=== PATIENT | female | born 1980 | race Caucasian/White ===

== ENCOUNTER 2018-09-13 16:36 | Emergency (ER) | payer BC ==
--- NOTE | 2018-09-13 16:59 | ER Document Report ---
ED Medical Screen (RME) - General Chief Complaint: Abdominal Pain Stated Complaint: ABNOMINAL PAIN Time Seen by Provider: 09/13/18 16:56 Mode of Arrival: Wheelchair Information source: Patient, Relative Notes: 37-year-old female with no reported past medical history presents with complaint of sudden onset of right lower quadrant pain that occurred 2 hours prior to arrival. Patient has had associated nausea, vomiting. Last menstrual period was 2 weeks ago. Denies any chance of . Denies prior similar symptoms. Last bowel movement was 3 days ago. TRAVEL OUTSIDE OF THE [place] IN LAST 30 DAYS: Yes - HPI Onset: Just prior to arrival Onset/Duration: Sudden Quality of pain: Stabbing Severity: Severe Associated Symptoms: Abdominal pain, Nausea, Vomiting Exacerbated by: Denies Relieved by: Denies Similar symptoms previously: No Recently seen / treated by doctor: No - Related Data Smoking: Non-smoker Frequency of alcohol use: None Drug Abuse: None Allergies/Adverse Reactions: oxycodone HCl [From Percocet] Allergy (Severe, Verified 09/13/18 16:48) Vomiting Past Medical History - Social History Chew tobacco use (# tins/day): No Frequency of alcohol use: None Drug Abuse: None Neurological Medical History: Denies: Hx Seizures Renal/ Medical History: Denies: Hx Peritoneal Dialysis Past Surgical History: Denies: Hx Hysterectomy, Hx Pacemaker Physical Exam - Vital signs Vitals: Temp Pulse Resp BP Pulse Ox 97.7 F 76 18 128/91 H 100 09/13/18 16:44 09/13/18 16:44 09/13/18 16:44 09/13/18 16:44 09/13/18 16:44 Course - Vital Signs Vital signs: Temp Pulse Resp BP Pulse Ox 97.7 F 76 18 128/91 H 100 09/13/18 16:44 09/13/18 16:44 09/13/18 16:44 09/13/18 16:44 09/13/18 16:44
[2018-09-13] MEDS ORDERED: MORPHINE SULFATE 10 MG/ML INJ IV ONE (17:09)
[2018-09-13] MEDS ORDERED: ONDANSETRON HCL INJ/PF 4 MG/2 ML SDV IV ONE (17:09)
[2018-09-13] MEDS ORDERED: HYDROMORPHONE HCL INJ/PF 2 MG/ML AMPULE IM ONE (17:11)
[2018-09-13] MEDS ORDERED: ONDANSETRON 4 MG TAB.RAPDIS PO ONE (17:11)
[2018-09-13 17:34] LABS: ABSOLUTE EOSINOPHILS # (AUTO) 0.1 10^3/uL (0.0-0.6); ABSOLUTE LYMPHOCYTES (AUTO) 1.3 10^3/uL (0.5-4.7); ABSOLUTE MONOCYTES (AUTO) 0.7 10^3/uL (0.1-1.4); ABSOLUTE NEUT (AUTO) 7.8 10^3/uL (1.7-8.2); BASOPHILS % (AUTO) 0.2 % (0-2); EOSINOPHILS % (AUTO) 1.4 % (0-6); HEMATOCRIT 41.3 % (36.0-47.0); HEMOGLOBIN 14.1 g/dL (12.0-15.5); LYMPHOCYTES % (AUTO) 12.6 % (13-45); MEAN CORPUSCULAR HEMOGLOBIN 30.6 pg (27.0-33.4); MEAN CORPUSCULAR HGB CONC 34.2 g/dL (32.0-36.0); MEAN CORPUSCULAR VOLUME 90 fl (80-97); MONOCYTES % (AUTO) 7.3 % (3-13); PLATELET COUNT 285 10^3/uL (150-450); RED BLOOD COUNT 4.61 10^6/uL (3.72-5.28); RED CELL DISTRIBUTION WIDTH 12.8 % (11.5-14.0); SEGMENTED NEUTROPHILS % (AUTO) 78.5 % (42-78); TOTAL CELLS COUNTED % (AUTO) 100 %
[2018-09-13 17:45] LABS: APPEARANCE,URINE CLOUDY; BILIRUBIN,URINE NEGATIVE (NEGATIVE); COLOR,URINE YELLOW; GLUCOSE, URINE NEGATIVE (NEGATIVE); KETONES,URINE 20 mg/dL (NEGATIVE); LEUKOCYTE ESTERASE,URINE MODERATE (NEGATIVE); NITRITE,URINE NEGATIVE (NEGATIVE); PROTEIN,URINE 30 mg/dL (NEGATIVE); URINE SPECIFIC GRAVITY 1.027; UROBILINOGEN,URINE NEGATIVE mg/dL (<2.0)
[2018-09-13 17:53] LABS: ALANINE AMINOTRANSFERASE 22 U/L (9-52); ALKALINE PHOSPHATASE 55 U/L (38-126); ANION GAP 14 (5-19); ASPARTATE AMINO TRANSFERASE 25 U/L (14-36); BILIRUBIN,DIRECT 0.3 mg/dL (0.0-0.4); BILIRUBIN,TOTAL 0.6 mg/dL (0.2-1.3); BLOOD UREA NITROGEN 26 mg/dL (7-20); CALCIUM 9.9 mg/dL (8.4-10.2); CARBON DIOXIDE 27 mmol/L (22-30); CHLORIDE 101 mmol/L (98-107); GLUCOSE 92 mg/dL (75-110); LIPASE 124.4 U/L (23-300); POTASSIUM 4.4 mmol/L (3.6-5.0); SODIUM 142.4 mmol/L (137-145); TOTAL PROTEIN 8.3 g/dL (6.3-8.2)
--- NOTE | 2018-09-13 19:05 | RADIOLOGY REPORT (SQ) ---
EXAM DESCRIPTION: U/S NON OB PEL TV W/DOPPLER COMPLETED DATE/TIME: 09/13/2018 6:11 pm REASON FOR STUDY: Sudden onset of right lower quadrant pain LMP 09/01/2018 COMPARISON: None. TECHNIQUE: Dynamic and static grayscale images acquired of the pelvis via transvaginal approach and recorded on PACS. Additional selected color Doppler and spectral images recorded. LIMITATIONS: None. FINDINGS: UTERUS: Contour normal. No mass. ENDOMETRIAL STRIPE: Thickened. CERVIX: There is fluid in the endocervical canal. No nabothian cysts. RIGHT OVARY AND DOPPLER: Normal size. No worrisome masses. Normal arterial vascular flow without evid ence for torsion. There is irregular complex cyst measuring 1.7 x 1.5 x 1.6 cm. LEFT OVARY AND DOPPLER: Normal size. No worrisome masses. Normal arterial vascular flow without evide nce for torsion. FREE FLUID: No free fluid is seen. OTHER: No other significant finding. MEASUREMENTS: UTERUS: 8.7 x 4.1 x 5.1 cm. ENDOMETRIAL STRIPE: 16 mm. RIGHT OVARY: 3.6 x 2.3 x 2.6 cm. LEFT OVARY: 3.4 x 1.3 x 2.3 cm. IMPRESSION: 1. Slightly thickened endometrium. 2. Irregular right ovarian cyst possibly representing a ruptured follicle. TECHNICAL DOCUMENTATION: JOB ID: [id number]- All Rights Reserved Rev-02/25 Reading location - IP/workstation name: [email or web address]
[2018-09-13] MEDS ORDERED: NORMAL SALINE 1000 ML 1,000 ML IV ONE (20:06)
--- NOTE | 2018-09-13 20:42 | ER Document Report ---
ED GI/ - General Chief Complaint: Abdominal Pain Stated Complaint: ABNOMINAL PAIN Time Seen by Provider: 09/13/18 16:56 Mode of Arrival: Wheelchair Notes: Patient is a 37-year-old female presenting to the emergency department complaining of sudden onset of right lower pelvic pain this morning. Patient states pain was associated with nausea and vomiting. Patient denies any dysuria , vaginal discharge, fever, chest pain, shortness of breath, URI symptoms. Pt. stated LMP was 2 weeks ago. Past medical history: Depression, ADHD Medications: Wellbutrin, Adderall Allergies: None Surgical history: None TRAVEL OUTSIDE OF THE [place] IN LAST 30 DAYS: Yes - Related Data Allergies/Adverse Reactions: oxycodone HCl [From Percocet] Allergy (Severe, Verified 09/13/18 16:48) Vomiting Past Medical History - General Information source: Patient, Relative - Social History Smoking Status: Never Smoker Chew tobacco use (# tins/day): No Frequency of alcohol use: None Drug Abuse: None Lives with: Family Family History: Reviewed & Not Pertinent Patient has suicidal ideation: No Patient has homicidal ideation: No Neurological Medical History: Denies: Hx Seizures Renal/ Medical History: Denies: Hx Peritoneal Dialysis Past Surgical History: Denies: Hx Hysterectomy, Hx Pacemaker Review of Systems - Review of Systems Constitutional: denies: Chills, Fever EENT: No symptoms reported Cardiovascular: No symptoms reported Respiratory: No symptoms reported Gastrointestinal: See HPI Genitourinary: See HPI Female Genitourinary: See HPI Musculoskeletal: denies: Back pain Skin: No symptoms reported Hematologic/Lymphatic: No symptoms reported Neurological/Psychological: No symptoms reported Physical Exam - Vital signs Vitals: Temp Pulse Resp BP Pulse Ox 97.7 F 76 18 128/91 H 100 09/13/18 16:44 09/13/18 16:44 09/13/18 16:44 09/13/18 16:44 09/13/18 16:44 - Notes Notes: GENERAL: Alert, interacts well. No acute distress. HEAD: Normocephalic, atraumatic. EYES: Pupils equal, round, and reactive to light. Extraocular movements intact. ENT: Oral mucosa moist, tongue midline. NECK: Full range of motion. Supple. Trachea midline. LUNGS: Clear to auscultation bilaterally, no wheezes, rales, or rhonchi. No respiratory distress. HEART: Regular rate and rhythm. No murmur ABDOMEN: Soft, non-tender. Non-distended. Bowel sounds present in all 4 quadrants. No McBurney's point tenderness, no Rodriguez sign. Slight right lower pelvic pain upon deep palpation, patient states pain has much improved since arrival to the emergency room. EXTREMITIES: Moves all 4 extremities spontaneously. No edema, normal radial and dorsalis pedis pulses bilaterally. No cyanosis. BACK: no cervical, thoracic, lumbar midline tenderness. No saddle anesthesia, normal distal neurovascular exam. No CVA tenderness bilaterally NEUROLOGICAL: Alert and oriented x3. Normal speech. cranial nerves II through XII grossly intact. PSYCH: Normal affect, normal mood. SKIN: Warm, dry, normal turgor. No rashes or lesions noted. Course - Re-evaluation Re-evalutation: 09/13/18 20:42 Discussed ultrasound results with patient at bedside. Likely right ovarian cyst burst with blood in urine. Urine shows no signs of infection, no signs of leukocytosis or anemia on lab work. No electrolyte abnormalities. Patient states she does still feel a little nauseated. Offered her more Zofran or Phenergan. Patient states she wishes for discharge at this time. Discussed I will send her home on oral Zofran. Also discussed patient's spec grav and its elevation and need for hydration. Patient wishes to decline IV hydration at this time. discussed need to stay well-hydrated at home. Discussed following up with [employer] at bedside. Patient is not tachycardic at this time afebrile. Stable for discharge. - Vital Signs Vital signs: Temp Pulse Resp BP Pulse Ox 97.7 F 76 18 128/91 H 100 09/13/18 16:44 09/13/18 16:44 09/13/18 16:44 09/13/18 16:44 09/13/18 16:44 - Laboratory Result Diagrams: 09/13/18 17:06 09/13/18 17:06 Laboratory results interpreted by me: 09/13/18 09/13/18 09/13/18 17:06 17:06 17:06 Seg Neutrophils % 78.5 H Lymphocytes % 12.6 L BUN 26 H Est GFR (Non-Af Amer) 58 L Total Protein 8.3 H Urine Protein 30 H Urine Ketones 20 H Urine Blood LARGE H Ur Leukocyte Esterase MODERATE H Discharge - Discharge Clinical Impression: Ovarian cyst Qualifiers: Laterality: right Qualified Code(s): N83.201 - Unspecified ovarian cyst, right side Condition: Stable Disposition: HOME, SELF-CARE Instructions: Ovarian Cyst ([facility]), Dehydration ([facility]) Additional Instructions: As we discussed your ultrasound and urine results show that you most likely had a ruptured ovarian cyst. Your urine also shows signs of dehydration. You should make sure you drink plenty of fluids at home. Please follow-up with OB/ STAFF PHARMACIST in the next 24-48 hours. Please take [id number] Tylenol and Motrin for return to lower abdominal pain. Please return to the emergency room for any other concerning symptoms. Prescriptions: Ondansetron [Zofran Odt 4 mg Tablet] 1 - 2 tab PO Q4H PRN #15 tab.rapdis PRN Reason: For Nausea/Vomiting Referrals: RUBEN HOWARD DO [ACTIVE STAFF] - Follow up as needed
[2018-09-13 21:07] VITALS: BP 122/78
== END 2018-09-13 20:54 | disposition home or self-care (01) ==
LOC: ER 16:36
DX: N83.201 Unspecified ovarian cyst, right side (principal); R10.2 Pelvic and perineal pain; R11.2 Nausea with vomiting, unspecified; F90.9 Attention-deficit hyperactivity disorder, unspecified type; F32.9 Major depressive disorder, single episode, unspecified; Z79.899 Other long term (current) drug therapy; Z88.5 Allergy status to narcotic agent
CPT/HCPCS: 99284; 96372; 36415; 83690; 85025; 81025; 80053; 81001; 76830; 93976; S0119; J1170